=== PATIENT | male | born 1955 | race Caucasian/White ===

== ENCOUNTER → 2017-10-24 | Outpatient (CLI) | payer MEDICARE ==
[~2017-10-24] MED LIST: CIPR500 PO; DOCU100 PO; FLUO10 PO; HYDR1TAB94 PO; NITR100CA PO; SAW PALMETTO; SENN187 PO; TAMS.4ER PO; VITAMIN C; Vitamin C100 M1
== END | disposition home or self-care (01) ==
LOC: LAB 16:07
DX: N20.0 Calculus of kidney (principal)
CPT/HCPCS: 82360

== ENCOUNTER → 2020-06-09 | Outpatient (CLI) | payer MEDICARE ==
[2020-06-09 18:47] LABS: Source, Urine Clean Catch
[2020-06-09 18:58] LABS: Bilirubin, Urine Neg (Neg); Blood, Urine 1+ (Neg); Glucose Qualitative, Urine Neg (Neg); Ketones, Urine Neg (Neg); Leukocyte Esterase, Urine 2+ (Neg); Nitrite, Urine Neg (Neg); Protein, Urine 1+ (Neg); Specific Gravity, Urine 1.025 (1.003-1.022); Urobilinogen, Urine NORM (Normal)
[2020-06-09 19:24] LABS: Appearance, Urine Hazy (Clear); Color, Urine Yellow (P-Yellow)
[2020-06-09 19:25] LABS: Red Blood Cells, Urine 0-2 /hpf (0-2); Squamous Epithelial Cells Few /hpf (Few)
[2020-06-09 19:26] LABS: Amorphous Light (0-Heavy); Bacteria Many /hpf
== END | disposition home or self-care (01) ==
LOC: LAB SHORT 16:04 → LAB 16:04
PROVIDERS: Student in an Organized Health Care Education/Training Program
DX: R39.15 Urgency of urination (principal); R82.90 Unspecified abnormal findings in urine
CPT/HCPCS: 81001; 87086

== ENCOUNTER 2023-06-20 20:08 | Emergency (ER) | payer MEDICARE ==
[~2023-06-20] VITALS: Ht 182.9 cm; Wt 97.5 kg
[2023-06-20 20:14] VITALS: BP 165/95
[2023-06-20] MEDS ORDERED: Tessalon200 MG PO (23:52)
== END 2023-06-20 23:57 | disposition home or self-care (01) ==
LOC: ER 20:08
DX: R05.9 Cough, unspecified (principal); Z91.09 Other allergy status, other than to drugs and biological substances; Z79.899 Other long term (current) drug therapy; Z87.891 Personal history of nicotine dependence
CPT/HCPCS: 71046; 99283-25; A9270

== ENCOUNTER → 2023-06-22 | Outpatient (CLI) | payer MEDICARE ==
[~2023-06-22] MED LIST changes: +OMEP20ER PO; +Tessalon200 MG PO
[2023-06-22 18:12] LABS: BASOPHILS ABSOLUTE AUTO 0.07 K/mm3 (0.00-0.23); BASOPHILS PERCENT AUTO 1 % (0-2); EOSINOPHILS ABSOLUTE AUTO 0.11 K/mm3 (0.00-0.68); EOSINOPHILS PERCENT AUTO 2 % (0-6); Hematocrit 44.9 % (37.0-53.0); Hemoglobin 15.1 g/dL (13.5-17.5); IMMATURE GRAN ABSOLUTE AUTO 0.05 K/mm3 (0.00-0.10); IMMATURE GRAN PERCENT AUTO 1 % (0-1); LYMPHOCYTES ABSOLUTE AUTO 1.36 K/mm3 (0.84-5.20); LYMPHOCYTES PERCENT AUTO 18 % (21-46); MONOCYTES ABSOLUTE AUTO 1.13 K/mm3 (0.16-1.47); MONOCYTES PERCENT AUTO 15 % (4-13); Mean Corpuscular HGB 31.3 pg (26.0-34.0); Mean Corpuscular HGB Conc 33.6 g/dL (31.5-36.5); Mean Corpuscular Volume 93 fL (80-100); Mean Platelet Volume 10.8 fL (9.1-12.4); NEUTROPHILS PERCENT AUTO 63 % (41-73); Platelet Count 293 K/mm3 (150-400); RDW Coefficient Variation 12.8 % (11.7-14.2); RDW Standard Deviation 43.8 fL (35.1-46.3); Red Blood Cell Count 4.83 M/mm3 (4.30-5.90); White Blood Cell Count 7.42 K/mm3 (4.00-11.30)
[2023-06-22 19:21] LABS: Alanine Aminotransfer (ALT/SGP 38 U/L (12-78); Albumin, Blood 3.6 g/dL (3.4-5.0); Albumin/Globulin Ratio 0.8 (0.8-1.8); Alk Phos 100 U/L (50-136); Anion Gap 2 mmol/L (6-16); Aspartate Aminotrans (AST/SGOT 23 U/L (12-37); Bilirubin, Total 0.4 mg/dL (0.1-1.0); Blood Urea Nitrogen 13 mg/dL (8-24); Bun/Creatinine Ratio 14.5 (12.0-20.0); CHOL/HDL RATIO 3.7; CO2, Blood 28 mmol/L (21-32); Calcium, Blood 9.2 mg/dL (8.5-10.1); Chloride, Blood 107 mmol/L (98-108); Cholesterol 154 mg/dL (50-200); Globulin, Blood 4.3 g/dL (2.2-4.0); Glomerular Filtration Rate 92 (60-); Glucose, Blood 93 mg/dL (70-99); HDL Cholesterol 42 mg/dL (>39); LDL/HDL RATIO 2.1; Low Density Lipoprotein Chol 90 mg/dL (0-110); Potassium, Blood 3.9 mmol/L (3.5-5.5); Prostate Specific Antigen 0.907 ng/mL (0.000-4.000); Sodium, Blood 137 mmol/L (136-145); Total Protein, Blood 7.9 g/dL (6.4-8.2); Triglycerides 110 mg/dL (30-160); Very Low Density Lipoprot Chol 22 mg/dL (6-32)
== END | disposition home or self-care (01) ==
LOC: LAB SHORT 17:17 → LAB 17:17
PROVIDERS: Student in an Organized Health Care Education/Training Program
DX: Z12.5 Encounter for screening for malignant neoplasm of prostate (principal); E78.2 Mixed hyperlipidemia; F32.9 Major depressive disorder, single episode, unspecified; R39.15 Urgency of urination
CPT/HCPCS: 80053; 80061; 85025; G0103

== ENCOUNTER 2023-06-29 19:16 | Inpatient (IN) | payer MEDICARE ==
[~2023-06-29] VITALS: Ht 188 cm; Wt 96.8 kg
[~2023-06-29 19:16] MED LIST changes: +Acerola C500 MG PO; -OMEP20ER PO; -VITAMIN C
[2023-06-29 19:48] LABS: BASOPHILS ABSOLUTE AUTO 0.07 K/mm3 (0.00-0.23); BASOPHILS PERCENT AUTO 1 % (0-2); EOSINOPHILS ABSOLUTE AUTO 0.08 K/mm3 (0.00-0.68); EOSINOPHILS PERCENT AUTO 1 % (0-6); Hematocrit 45.2 % (37.0-53.0); Hemoglobin 15.7 g/dL (13.5-17.5); IMMATURE GRAN ABSOLUTE AUTO 0.04 K/mm3 (0.00-0.10); IMMATURE GRAN PERCENT AUTO 0 % (0-1); LYMPHOCYTES ABSOLUTE AUTO 1.26 K/mm3 (0.84-5.20); LYMPHOCYTES PERCENT AUTO 14 % (21-46); MONOCYTES ABSOLUTE AUTO 0.93 K/mm3 (0.16-1.47); MONOCYTES PERCENT AUTO 10 % (4-13); Mean Corpuscular HGB 31.8 pg (26.0-34.0); Mean Corpuscular HGB Conc 34.7 g/dL (31.5-36.5); Mean Corpuscular Volume 92 fL (80-100); Mean Platelet Volume 10.1 fL (9.1-12.4); NEUTROPHILS ABSOLUTE AUTO 6.89 K/mm3 (1.96-9.15); NEUTROPHILS PERCENT AUTO 74 % (41-73); Platelet Count 354 K/mm3 (150-400); RDW Coefficient Variation 12.3 % (11.7-14.2); Red Blood Cell Count 4.93 M/mm3 (4.30-5.90); White Blood Cell Count 9.27 K/mm3 (4.00-11.30)
[2023-06-29 20:06] LABS: Albumin, Blood 3.7 g/dL (3.4-5.0); Albumin/Globulin Ratio 0.8 (0.8-1.8); Bilirubin, Total 0.2 mg/dL (0.1-1.0); Bun/Creatinine Ratio 15.7 (12.0-20.0); Calcium, Blood 9.1 mg/dL (8.5-10.1); Creatinine, Blood 0.95 mg/dL (0.60-1.20); Globulin, Blood 4.4 g/dL (2.2-4.0); Total Protein, Blood 8.1 g/dL (6.4-8.2)
[2023-06-29 22:23] LABS: Magnesium, Blood 2.2 mg/dL (1.6-2.4)
[2023-06-30] VITALS (15 sets, daily range): BP systolic 128–149; BP diastolic 77–97
[2023-06-30 00:21] LABS: Source, Urine Clean Catch
[2023-06-30 00:27] LABS: Appearance, Urine Turbid (Clear); Bilirubin, Urine Neg (Neg); Blood, Urine 2+ (Neg); Color, Urine Yellow (P-Yellow); Glucose Qualitative, Urine Neg (Neg); Ketones, Urine Neg (Neg); Leukocyte Esterase, Urine 3+ (Neg); Nitrite, Urine Neg (Neg); Protein, Urine 2+ (Neg); Urobilinogen, Urine NORM (Normal)
[2023-06-30 00:47] LABS: Bacteria Many /hpf; Red Blood Cells, Urine 0-2 /hpf (0-2); Squamous Epithelial Cells Few /hpf (Few)
[2023-06-30] MEDS ORDERED: OMEP20ER PO (01:58)
[2023-06-30 02:17] LABS: Anti-Xa UFH, PHA Monitoring <0.10 IU/mL; International Normalized Ratio 1.01; Prothrombin Time Results 10.6 Sec (9.7-11.5)
[2023-06-30 02:36] LABS: CHOL/HDL RATIO 3.9; Cholesterol 140 mg/dL (50-200); HDL Cholesterol 36 mg/dL (>39); LDL/HDL RATIO 2.4; Low Density Lipoprotein Chol 86 mg/dL (0-110); Triglycerides 89 mg/dL (30-160); Very Low Density Lipoprot Chol 17 mg/dL (6-32)
[2023-06-30 04:13] LABS: BASOPHILS ABSOLUTE AUTO 0.06 K/mm3 (0.00-0.23); BASOPHILS PERCENT AUTO 1 % (0-2); EOSINOPHILS ABSOLUTE AUTO 0.13 K/mm3 (0.00-0.68); EOSINOPHILS PERCENT AUTO 1 % (0-6); Hematocrit 41.5 % (37.0-53.0); Hemoglobin 14.5 g/dL (13.5-17.5); IMMATURE GRAN ABSOLUTE AUTO 0.05 K/mm3 (0.00-0.10); IMMATURE GRAN PERCENT AUTO 1 % (0-1); LYMPHOCYTES ABSOLUTE AUTO 1.66 K/mm3 (0.84-5.20); LYMPHOCYTES PERCENT AUTO 16 % (21-46); MONOCYTES ABSOLUTE AUTO 1.25 K/mm3 (0.16-1.47); MONOCYTES PERCENT AUTO 12 % (4-13); Mean Corpuscular HGB 31.9 pg (26.0-34.0); Mean Corpuscular HGB Conc 34.9 g/dL (31.5-36.5); Mean Corpuscular Volume 91 fL (80-100); Mean Platelet Volume 10.1 fL (9.1-12.4); NEUTROPHILS ABSOLUTE AUTO 7.34 K/mm3 (1.96-9.15); NEUTROPHILS PERCENT AUTO 70 % (41-73); Platelet Count 322 K/mm3 (150-400); RDW Coefficient Variation 12.5 % (11.7-14.2); RDW Standard Deviation 41.5 fL (35.1-46.3); Red Blood Cell Count 4.55 M/mm3 (4.30-5.90); White Blood Cell Count 10.49 K/mm3 (4.00-11.30)
--- NOTE | 2023-06-30 04:29 | NUR ---
SHIFT SUMMARY PT IS A NEW ADMIT THIS SHIFT WITH NSTEMI. HE HAS A CONSULT FOR DR. CHE AND IT HAS BEEN CALLED INTO THE . PT HAS BEEN NPO FOR THE CONSULT. HE HAS A HEP GTT RUNNING AT 15. HE HAS NOT REPORTED CHEST PAIN SINCE HE RECIEVED NITRO IN THE ED BUT HE STATES IT "FEELS UNCOMFORTABLE". HIS BP'S HAVE BEEN STABLE AFTER RECIEVING 10MG HYDRALIZINE IV IN THE ED. HR SR 80'S-90'S. PT IS SBA IN THE ROOM, AND CALLS APPROPRIATELY. TROPS ARE ELEVATED AND ARE BEING MONITORED. TELE IS AWARE TO WATCH FOR ANY ST CHANGES. FIRE IGNITION RISK HAS BEEN ASSESSED AND EDUCATION PROVIDED. PT QUIT [facility] IN 1991,
[2023-06-30 04:37] LABS: Albumin, Blood 3.2 g/dL (3.4-5.0); Albumin/Globulin Ratio 0.8 (0.8-1.8); Bilirubin, Total 0.2 mg/dL (0.1-1.0); Bun/Creatinine Ratio 16.6 (12.0-20.0); Calcium, Blood 8.7 mg/dL (8.5-10.1); Creatinine, Blood 0.84 mg/dL (0.60-1.20); Potassium, Blood 3.6 mmol/L (3.5-5.5); Total Protein, Blood 7.2 g/dL (6.4-8.2)
[2023-06-30 09:35] LABS: CHOL/HDL RATIO 3.6; Cholesterol 140 mg/dL (50-200); HDL Cholesterol 39 mg/dL (>39); LDL/HDL RATIO 2.2; Low Density Lipoprotein Chol 85 mg/dL (0-110); Triglycerides 81 mg/dL (30-160); Very Low Density Lipoprot Chol 16 mg/dL (6-32)
--- NOTE | 2023-06-30 09:36 | NUR ---
DR. CELAYA IN ROOM THIS AM TO DISCUSS CARDIAC PLAN WITH PATIENT. PLAN FOR ANGIOGRAM THIS AM. CONSENT SIGNED AND IN CHART. THIS RN UPDATED DR. CELAYA AT BEDSIDE OF MOST RECENT TROPONIN 6088. HEPARIN CONTINUES TO INFUSE PER PHARMACY. VERBAL ORDERS FROM DR. CELAYA TO GIVE 600MG PO PLAVIX. ORDERS IN PLACE. PLAVIX GIVEN PER ORDERS. EKG COMPLETED. ECHO BEING DONE AT THIS TIME. FAMILY AT BEDSIDE AND UPDATED ON PLAN. PATIENT REMAINS NPO.
--- NOTE | 2023-06-30 09:40 | NUR ---
Upon receiving a referral for spiritual care, I visited the patient. He immediately tells me about the events to his admission to the hospital, the medical plan of care and his nervousness about his upcoming procedure. He also shares about his family and his current [facility] project that he is working on. I provide a calming presence, anxiety containment and prayer. Pamcorbinjeanette responded well and showed signs of reduced stress. I will continue to remain available to patient and family.
--- NOTE | 2023-06-30 11:03 | NUR ---
PT A&OX4, PLEASANT AND COOPERATIVE WITH CARE. PT DENIES CHEST PAIN/PRESSURE. HR 70'S-90'S SR. PT ON RA 02 SAT ABOVE 93%, PT DENIES SOB. CARDIOLOGY CONSULT WAS CONDUCTED THIS MORNING, PT DUE TO GO TO [facility] ETCH OPERATOR THIS MORNING. PT RESTING IN BED, CALL LIGHT WITHIN REACH.
--- NOTE | 2023-06-30 12:38 | NUR ---
PT LEFT TO MEDICAL PHOTOGRAPHER. PHARMACY NOTIFIED.
--- NOTE | 2023-06-30 14:55 | NUR ---
PT RESTING IN HIS BED POST CANDY MIXER. TR BAND & ARM BOARD IN PLACE. SITE CHECK AND VITALS PERFORMED PER PROTOCOL. SITE SOFT, NONTENDER, 0 HEMATOMA. TWO VISITORS IN ROOM WITH PT. PT HAD SNACK AND TOLERATED IT WELL. CALL LIGHT WITHIN REACH.
--- NOTE | 2023-06-30 17:02 | NUR ---
THIS RN PLACED CALL TO DR. CELAYA TO CLARIFY HEPARIN ORDERS. TELEPHONE VERBAL ORDERS TO RESTART HEPARIN POST TR BAND REMOVAL AND STABLE. PHARMACY UPDATED. DR. CELAYA VISITING IN PERSON, PATIENT SLEEPING. THIS RN CONFIRMED HEPARING ORDER IN PERSON, DR. CELAYA WANTING HEPARIN OVERNIGHT POST TR BAND REMOVAL.
--- NOTE | 2023-06-30 17:31 | NUR ---
SHIFT SUMMARY NO ACUTE CHANGES, SEE PREVIOUS NOTES. AIR REMOVED FROM TR BAD PER PROTOCOL. TR BAND AND ARM BOARD IN PLACE. SITE SOFT, NONTENDER, 0 HEMATOMA. PT DENIES PAIN/NUMBNESS/TINGLING. HR SR 70'S PT DENIES CHEST PAIN/PRESSURE. PT ON RA, 02 SATURATION ABOVE 90% ON RA, PT DENIES SOB. PT EATING DINNER. CALL LIGHT WITHIN REACH.
--- NOTE | 2023-06-30 18:47 | NUR ---
TR BAND REMOVED. SITE SOFT, NONTENDER, 0 HEMATOMA. PT EDUCATED ON WHEN TO NOTIFY NURSE IF SITE STARTS BLEEDING, SWELLING, GETS PAINFUL, OR IF HEMATOMA FORMS. PT STATED UNDERSTANDING. TEGADERM AND ARM BOARD IN PLACE. PT RESTING IN BED, CALL LIGHT WITHIN REACH.
--- NOTE | 2023-06-30 19:20 | NUR ---
ASSUMPTION OF CARE RECEIVED BESIDE REPORT FROM SASKIA ODEN AND ASSUMED PT CARE. PT IS RESTING IN BED, ALERT AND ORIENTED, PLEASANT, DENIES PAIN OR OTHER COMPLAINTS. VSS, SEE ASSESSMENT FOR DETAILS. TR BAND IS OFF WITH TEGADERM DRESSING ON AND ARM BOARD IN PLACE, CHECKED SITE WITH OFF GOING RN AND IT IS SOFT, NON-TENDER, NO OOZING. HEPARIN IS RUNNING AT 15 U/KG/HR PER CURRENT ORDER TO L HAND IV SITE. WILL CONTINUE TO MONITOR AND CONTINUE PLAN OF CARE. BELONGINGS AND CALL LIGHT IN REACH.
[2023-07-01 00:35] VITALS: BP 153/95
[2023-07-01 01:16] LABS: BASOPHILS ABSOLUTE AUTO 0.09 K/mm3 (0.00-0.23); BASOPHILS PERCENT AUTO 1 % (0-2); EOSINOPHILS ABSOLUTE AUTO 0.26 K/mm3 (0.00-0.68); EOSINOPHILS PERCENT AUTO 2 % (0-6); Hematocrit 42.4 % (37.0-53.0); Hemoglobin 14.6 g/dL (13.5-17.5); IMMATURE GRAN ABSOLUTE AUTO 0.05 K/mm3 (0.00-0.10); IMMATURE GRAN PERCENT AUTO 1 % (0-1); LYMPHOCYTES ABSOLUTE AUTO 1.58 K/mm3 (0.84-5.20); LYMPHOCYTES PERCENT AUTO 15 % (21-46); MONOCYTES ABSOLUTE AUTO 1.18 K/mm3 (0.16-1.47); MONOCYTES PERCENT AUTO 11 % (4-13); Mean Corpuscular HGB 31.8 pg (26.0-34.0); Mean Corpuscular HGB Conc 34.4 g/dL (31.5-36.5); Mean Corpuscular Volume 92 fL (80-100); NEUTROPHILS ABSOLUTE AUTO 7.77 K/mm3 (1.96-9.15); NEUTROPHILS PERCENT AUTO 71 % (41-73); Platelet Count 297 K/mm3 (150-400); RDW Coefficient Variation 12.7 % (11.7-14.2); RDW Standard Deviation 43.1 fL (35.1-46.3); Red Blood Cell Count 4.59 M/mm3 (4.30-5.90); White Blood Cell Count 10.93 K/mm3 (4.00-11.30)
[2023-07-01 01:36] LABS: Albumin, Blood 3.1 g/dL (3.4-5.0); Albumin/Globulin Ratio 0.8 (0.8-1.8); Bilirubin, Total 0.4 mg/dL (0.1-1.0); Bun/Creatinine Ratio 14.4 (12.0-20.0); Calcium, Blood 8.7 mg/dL (8.5-10.1); Creatinine, Blood 0.9 mg/dL (0.60-1.20); Globulin, Blood 3.9 g/dL (2.2-4.0)
[2023-07-01 05:14] VITALS: BP 142/87
--- NOTE | 2023-07-01 06:25 | NUR ---
PT HAS RESTED WELL WITH NO COMPLAINTS. HEPARIN CONTINUES TO RUN AT 15 U/KG/HR. TR SITE REMAINS STABLE WITH NO COMPLICATIONS. OVERALL STATUS: IMPROVED WITH PLAN TO POSSIBLY DC HOME TODAY. WILL PROVIDE BEDSIDE REPORT TO THE ONCOMING RN.
[2023-07-01 07:55] VITALS: BP 134/79
--- NOTE | 2023-07-01 08:14 | NUR ---
PT A&OX4, PLEASANT AND COOPERATIVE WITH CARE. R RADIAL SITE SOFT, NONTENDER, 0 HEMATOMA, PT REPORTS NO PAIN. HR SR 80'S BP STABLE, PT DENIES CHEST PAIN/PRESSURE. 02 SATURATION ABOVE 90% ON RA, PT DENIES SOB. BODY COVERER SPOKE WITH PT THIS MORNING AND SAID PT SHOUDL D/C TODAY. PT SITTING UP EATING BREAKFAST, 100% EATEN. CALL LIGHT WITHIN REACH.
[2023-07-01 11:34] VITALS: BP 104/62
--- NOTE | 2023-07-01 11:35 | NUR ---
PT CONTINUES TO DENY PAIN, CHEST PAIN/PRESSURE, SOB. VITALS STABLE. PT VISITING IN ROOM WITH FAMILY. CALL LIGHT WITHIN REACH.
[2023-07-01] MEDS ORDERED: ASPI81CH PO (11:43)
[2023-07-01] MEDS ORDERED: METO50ER PO (11:44)
[2023-07-01] MEDS ORDERED: ATOR80 PO (11:44)
[2023-07-01] MEDS ORDERED: CLOP75 PO (11:44)
[2023-07-01] MEDS ORDERED: NITR.4SL SL (11:45)
[2023-07-01] MEDS ORDERED: Amlodipine Bes2.5 MG PO (11:46)
[2023-07-01] MEDS ORDERED: CEPHALEXIN500 M1 PO (11:46)
--- NOTE | 2023-07-01 12:43 | NUR ---
WENT OVER D/C INSTRUCTIONS WITH PT AND HIS FAMILY. ALL QUESTIONS WERE ANSWERED. PT LEFT WITH ALL OF HIS BELONGINGS AND D/C FOLDER. PT ADVISED TO RETURN TO HOSPITAL IF R RADIAL SITE STARTS TO BLEED, SWELL, BECOMES PAINFUL, FORMS A HEMATOMA, PT INSTRUCTED ON SIGNS AND SYMPTOMS OF INFECTION ADVISED TO RETURN TO HOSPITAL IF SIGNS/SYMPTOMS OF INFECTION OCCUR. PT AND HIS FAMILY STATED UNDERSTANDING. PT WHEELED OUT TO HIS CAR VIA WHEELCHAIR BY TRI.
== END 2023-07-01 12:45 | disposition home or self-care (01) | DRG 281 ==
LOC: ER 19:16 → PCU 23:47
PROVIDERS: Emergency Medicine; Family Medicine; Hospitalist; Student in an Organized Health Care Education/Training Program; ADMIT Internal Medicine
PROC: 4A023N7 Measurement of Cardiac Sampling and Pressure, Left Heart, Percutaneous Approach (ICD-10-PCS; principal; 2023-06-30)
PROC: B2111ZZ Fluoroscopy of Multiple Coronary Arteries using Low Osmolar Contrast (ICD-10-PCS; 2023-06-30)
PROC: B2151ZZ Fluoroscopy of Left Heart using Low Osmolar Contrast (ICD-10-PCS; 2023-06-30)
DX: I21.4 Non-ST elevation (NSTEMI) myocardial infarction (principal); N39.0 Urinary tract infection, site not specified; R94.31 Abnormal electrocardiogram [ECG] [EKG]; I25.118 Atherosclerotic heart disease of native coronary artery with other forms of angina pectoris; I16.0 Hypertensive urgency; K21.9 Gastro-esophageal reflux disease without esophagitis; B95.1 Streptococcus, group B, as the cause of diseases classified elsewhere; I10 Essential (primary) hypertension; I24.9 Acute ischemic heart disease, unspecified; N40.0 Benign prostatic hyperplasia without lower urinary tract symptoms; E78.5 Hyperlipidemia, unspecified; Z91.048 Other nonmedicinal substance allergy status; Z87.891 Personal history of nicotine dependence; Z77.120 Contact with and (suspected) exposure to mold (toxic); Z79.899 Other long term (current) drug therapy; Z98.1 Arthrodesis status; Z98.52 Vasectomy status
CPT/HCPCS: 36415; 71045; 76937; 80053; 80061; 81001; 83036; 83735; 83880; 84443; 84484; 85025; 85347; 85520; 85610; 85730; 87086; 87147; 93005; 93010; 93306; 93458; 94762; 96374; 99152; 99153; 99285-25; A9270; C1725; C1769; C1887; C1894; C9113; J0360; J1644; J2250; J3010; J7030; J7050; Q9967

== ENCOUNTER 2024-09-25 16:30 | Inpatient (IN) | payer MEDICARE, OTHER ==
[~2024-09-25] VITALS: Ht 188 cm; Wt 101.4 kg
[~2024-09-25 16:30] MED LIST changes: +ASPI81CH PO; +ATOR80 PO; +Amlodipine Bes2.5 MG PO; +CEPHALEXIN500 M1 PO; +CLOP75 PO; +Enoxaparin 40 MG/0.4 ML SYR SC SCH; +METO50ER PO; +NITR.4SL SL; +OMEP20ER PO
[2024-09-25 17:49] LABS: BASOPHILS ABSOLUTE AUTO 0.06 K/mm3 (0.00-0.23); BASOPHILS PERCENT AUTO 1 % (0-2); EOSINOPHILS ABSOLUTE AUTO 0.02 K/mm3 (0.00-0.68); EOSINOPHILS PERCENT AUTO 0 % (0-6); Hematocrit 42.8 % (37.0-53.0); Hemoglobin 14.6 g/dL (13.5-17.5); IMMATURE GRAN ABSOLUTE AUTO 0.04 K/mm3 (0.00-0.10); IMMATURE GRAN PERCENT AUTO 0 % (0-1); LYMPHOCYTES ABSOLUTE AUTO 1.27 K/mm3 (0.84-5.20); LYMPHOCYTES PERCENT AUTO 12 % (21-46); MONOCYTES PERCENT AUTO 10 % (4-13); Mean Corpuscular HGB 33.2 pg (26.0-34.0); Mean Corpuscular HGB Conc 34.1 g/dL (31.5-36.5); Mean Corpuscular Volume 97 fL (80-100); Mean Platelet Volume 10.4 fL (9.1-12.4); NEUTROPHILS ABSOLUTE AUTO 8.09 K/mm3 (1.96-9.15); NEUTROPHILS PERCENT AUTO 77 % (41-73); Platelet Count 274 K/mm3 (150-400); RDW Coefficient Variation 11.9 % (11.7-14.2); RDW Standard Deviation 43.2 fL (35.1-46.3); White Blood Cell Count 10.48 K/mm3 (4.00-11.30)
[2024-09-25 18:16] LABS: Albumin, Blood 3.4 g/dL (3.4-5.0); Albumin/Globulin Ratio 0.8 (0.8-1.8); Bilirubin, Total 0.5 mg/dL (0.1-1.0); Bun/Creatinine Ratio 19.9 (12.0-20.0); Calcium, Blood 9.4 mg/dL (8.5-10.1); Creatinine, Blood 0.9 mg/dL (0.60-1.20); Globulin, Blood 4.1 g/dL (2.2-4.0); Potassium, Blood 4.2 mmol/L (3.5-5.5); Total Protein, Blood 7.5 g/dL (6.4-8.2)
[2024-09-25] MEDS ORDERED: Lactated Ringer's 1,000 ML IV ONE (20:20)
[2024-09-25 20:48] LABS: Source, Urine Clean Catch
[2024-09-25 20:55] LABS: Appearance, Urine Cloudy (Clear); Bilirubin, Urine Neg (Neg); Blood, Urine 5+ (Neg); Color, Urine Yellow (P-Yellow); Glucose Qualitative, Urine Neg (Neg); Ketones, Urine Neg (Neg); Leukocyte Esterase, Urine 3+ (Neg); Nitrite, Urine Neg (Neg); Protein, Urine 2+ (Neg); Specific Gravity, Urine 1.015 (1.003-1.022); Urobilinogen, Urine NORM (Normal)
[2024-09-25 21:04] LABS: Red Blood Cells, Urine 0-2 /hpf (0-2); Squamous Epithelial Cells Few /hpf (Few); White Blood Cells, Urine TNTC /hpf (0-5)
[2024-09-25 21:05] LABS: Bacteria Many /hpf; Mucus Light (0-Heavy); Transitional Epithelial Cells Rare /hpf (0-Rare)
[2024-09-25] MEDS ORDERED: Ketorolac Tromethamine 15mg Vial IV ONE (21:40)
[2024-09-25] MEDS ORDERED: CefTRIAXone Sodium 1,000 MG in NS 100 ML IV ONE (21:40)
[2024-09-25 23:13] LABS: Influenza A, PCR NEGATIVE (NEGATIVE); Influenza B, PCR NEGATIVE (NEGATIVE); Resp Syncytial Virus, PCR NEGATIVE (NEGATIVE); SARS-Cov-2 (COVID-19) PCR, MMC NEGATIVE (NEGATIVE)
[2024-09-25] MEDS ORDERED: FLU VACC TS2024-25(6MOS UP)/PF 45 MCG/0.5 ML SYRINGE IM SCH (23:45)
[2024-09-25] MEDS ORDERED: Ondansetron HCl 2 MG / ML 2ML Vial IV PRN (23:45)
[2024-09-25] MEDS ORDERED: FentaNYL Citrate 50 MCG/ML 2 ML Injection IV PRN (23:45)
[2024-09-25] MEDS ORDERED: Ketorolac Tromethamine 30mg Vial IV PRN (23:45)
[2024-09-26] VITALS (7 sets, daily range): BP systolic 106–134; BP diastolic 60–79
[2024-09-26] MEDS ORDERED: Tamsulosin HCl 0.4 MG Cap PO SCH
[2024-09-26] MEDS ORDERED: PANT20 PO (01:39)
[2024-09-26] MEDS ORDERED: Tamsulosin HCl 0.4 MG Cap PO ONE (02:35)
[2024-09-26] MEDS ORDERED: NS 1,000 ML IV SCH (02:35)
[2024-09-26] MEDS ORDERED: Acetaminophen 325 MG TABLET PO PRN (04:30)
--- NOTE | 2024-09-26 04:37 | NUR ---
ARRIVAL TO SURGICAL UNIT ROOM 210 FROM ER AT 0115. PT ARRIVED VIA GURNEY AND ABLE TO STAND AND TRANSFER TO BED. PT A/O X4. PT RATES RIGHT FLANK PAIN AT 1-2/10 AND STATES IS TOLERABLE. PT ORIENTED TO ROOM AND CALL LIGHT. ANSWERED QUESTIONS, PT HAS NO IGNITION SOURCES. CALL LIGHT IN REACH.
[2024-09-26 05:41] LABS: BASOPHILS ABSOLUTE AUTO 0.07 K/mm3 (0.00-0.23); BASOPHILS PERCENT AUTO 1 % (0-2); EOSINOPHILS ABSOLUTE AUTO 0.14 K/mm3 (0.00-0.68); EOSINOPHILS PERCENT AUTO 2 % (0-6); Hematocrit 40.7 % (37.0-53.0); Hemoglobin 13.8 g/dL (13.5-17.5); IMMATURE GRAN ABSOLUTE AUTO 0.08 K/mm3 (0.00-0.10); IMMATURE GRAN PERCENT AUTO 1 % (0-1); LYMPHOCYTES ABSOLUTE AUTO 1.67 K/mm3 (0.84-5.20); LYMPHOCYTES PERCENT AUTO 17 % (21-46); MONOCYTES ABSOLUTE AUTO 1.04 K/mm3 (0.16-1.47); MONOCYTES PERCENT AUTO 11 % (4-13); Mean Corpuscular HGB 33.1 pg (26.0-34.0); Mean Corpuscular HGB Conc 33.9 g/dL (31.5-36.5); Mean Corpuscular Volume 98 fL (80-100); Mean Platelet Volume 10.6 fL (9.1-12.4); NEUTROPHILS ABSOLUTE AUTO 6.58 K/mm3 (1.96-9.15); NEUTROPHILS PERCENT AUTO 69 % (41-73); Platelet Count 239 K/mm3 (150-400); RDW Coefficient Variation 11.9 % (11.7-14.2); Red Blood Cell Count 4.17 M/mm3 (4.30-5.90); White Blood Cell Count 9.58 K/mm3 (4.00-11.30)
[2024-09-26 06:20] LABS: Albumin, Blood 3.2 g/dL (3.4-5.0); Albumin/Globulin Ratio 0.9 (0.8-1.8); Bilirubin, Total 0.5 mg/dL (0.1-1.0); Bun/Creatinine Ratio 20.1 (12.0-20.0); Calcium, Blood 9.1 mg/dL (8.5-10.1); Creatinine, Blood 0.9 mg/dL (0.60-1.20); Globulin, Blood 3.7 g/dL (2.2-4.0); Potassium, Blood 3.8 mmol/L (3.5-5.5); Total Protein, Blood 6.9 g/dL (6.4-8.2)
[2024-09-26] MEDS ORDERED: Pantoprazole Sodium 20 MG Tab PO SCH (06:44)
[2024-09-26] MEDS ORDERED: HYDROmorphone HCl 2 MG Tab PO PRN (08:25)
--- NOTE | 2024-09-26 08:31 | NUR ---
"Spiritual Care | Pt. Request Pt. is awake in bed and welcomes my visit. Pt. is pleasant. Facilitated a life review and Pt. shares some details of his medical history. Pt shares about his elisa. Matters of elisa and belief are considered. Pt. displayed evidence of awareness and engagement with only small moments of recall deficit. Prayed with Pt. Pt. verbalized gratitude for the spiritual care visit."
[2024-09-26] MEDS ORDERED: OxyCODONE 7.5 mg/Acetam 325 mg TABLET PO PRN (11:10)
[2024-09-26] MEDS ORDERED: OxyCODONE 7.5 mg/Acetam 325 mg TABLET PO SCH (12:00)
--- NOTE | 2024-09-26 18:11 | NUR ---
REPORT REPORT CALLED TO LUPE ODEN AT [facility] IN [place]. LUPE ODEN NOTIFIED THAT TRANSPORT IS ARRANGED FOR 8PM.
--- NOTE | 2024-09-26 18:22 | NUR ---
SHIFT SUMMARY PAIN HAS BEEN MANAGED WITH TORADOL AND PERCOCET THIS SHIFT. PT IS A SBA FOR HELP WITH LINES AND TUBES. PLAN FOR TRANSFER THIS EVENING TO [facility]. REPORT CALLED TO LUPE ODEN.
[2024-09-26] MEDS ORDERED: CefTRIAXone Sodium 1,000 MG in NS 100 ML IV SCH (21:00)
--- NOTE | 2024-09-26 22:23 | NUR ---
TRANSFER/ DISCHARGE PT TRASNFERRED TO [facility]. IN [place]. PT LEFT ON [facility]. PAIN MEDICATION GIVEN FOR COMFORT. ALL BELONGINGS SENT WITH FAMILY MEMBER. VSS.
== END 2024-09-26 22:15 | disposition short-term general hospital (02) | DRG 690 ==
LOC: ER 16:30 → SURS 16:31 → ER 22:56 → ERHOLD 22:56 → SURS 22:56 → ERHOLD 09-26 01:20 → SURS 09-26 01:20
PROVIDERS: Student in an Organized Health Care Education/Training Program; ADMIT Internal Medicine
DX: N13.6 Pyonephrosis (principal); I25.10 Atherosclerotic heart disease of native coronary artery without angina pectoris; I10 Essential (primary) hypertension; N40.0 Benign prostatic hyperplasia without lower urinary tract symptoms; K21.9 Gastro-esophageal reflux disease without esophagitis; E78.5 Hyperlipidemia, unspecified; Z79.899 Other long term (current) drug therapy; Z79.82 Long term (current) use of aspirin; Z98.52 Vasectomy status; Z87.891 Personal history of nicotine dependence
CPT/HCPCS: 0241U; 36415; 74176; 80053; 81001; 83880; 85025; 87086; 87147; 96361; 96365; 96366; 96372; 96375; 99285-25; A9270; G0378; J0696; J1650; J1885; J2470; J7030; J7120